=== PATIENT | female | born 1950 | race Caucasian/White ===

== ENCOUNTER → 2017-10-25 | Outpatient (CLI) | payer BC ==
--- NOTE | 2017-10-25 16:26 | RADIOLOGY IMAGING REPORT ---
FACILITY: [facility] PATIENT NAME: Yumiko Ramirez : 1950 MR: [id number] V: [id number] EXAM DATE: ORDERING PHYSICIAN: GIA BURLESON TECHNOLOGIST: Location: [facility] Patient: Yumiko Ramirez : 1950 Visit/Account:[id number] Date of Sevice: 10/25/2017 KNEE 3 VIEW RIGHT History: Right knee pain. Comparison study: None. Findings: There is severe osteopenia. There is no fracture. There is a joint effusion. There are calcified loose bodies in the joint space. There are findings of very prominent joint space narrowing throughout the right knee but they are mos t prominent in the lateral joint space compartment where there is also subchondral sclerosis and a re sultant valgus deformity. Correlation with physical exam and past medical history recommended. IMPRESSION: 1. Severe osteopenia without findings of a fracture. 2. Prominent findings of joint space narrowing throughout the right knee most prominent in the later al joint space compartment. The findings could be related to osteoarthrosis but correlation with cli nical exam is recommended. 3. Moderate-sized joint effusion with calcified loose bodies throughout the joint space. Report Dictated By: Abdirahman Billy MD at 10/25/2017 4:21 PM Report E-Signed By: Abdirahman Billy MD at 10/25/2017 4:22 PM WSN:[email or web address]
== END ==
LOC: RAD 14:10
PROVIDERS: ATTEND Chiropractor
DX: M85.88 Other specified disorders of bone density and structure, other site (principal); M25.461 Effusion, right knee

== ENCOUNTER → 2018-05-22 | Outpatient (CLI) | payer BC ==
--- NOTE | 2018-05-22 12:05 | RADIOLOGY IMAGING REPORT ---
FACILITY: [facility] PATIENT NAME: Yumiko Ramirez : 1950 MR: [id number] V: [id number] EXAM DATE: ORDERING PHYSICIAN: KARTIK NIÑO TECHNOLOGIST: Location: [facility] [place] Patient: Yumiko Ramirez : 1950 Visit/Account:[id number] Date of Sevice: 05/22/2018 EXAMINATION: Chest radiographs 2 views HISTORY: Preoperative exam. Chronic osteoarthritis of right knee, knee pain. COMPARISON: None. FINDINGS: PA and lateral views of the chest are submitted. Lines/tubes: None. Lungs/pleura: No focal consolidation or pleural effusion. Heart: Negative. Mediastinum: Negative. Bony structures/body wall: Mild scoliosis of the thoracolumbar spine. IMPRESSION: No radiographic evidence of acute cardiopulmonary disease. Report Dictated By: Regi Fried MD at 05/22/2018 12:01 PM Report E-Signed By: Regi Fried MD at 05/22/2018 12:02 PM WSN:[email or web address]
--- NOTE | 2018-05-22 12:33 | EKG ---
FACILITY: [facility] PATIENT NAME: TERRI DOW : [id number] MR: [id number] V: [id number] EXAM DATE: ORDERING PHYSICIAN: LIZ BECERRA TECHNOLOGIST: Test Reason : pre-op Blood Pressure : / mmHG Vent. Rate : 069 BPM Atrial Rate : 069 BPM P-R Int : 192 ms QRS Dur : 076 ms QT Int : 394 ms P-R-T Axes : 040 005 026 degrees QTc Int : 422 ms Normal sinus rhythm Anteroseptal infarct , age undetermined Abnormal ECG No previous ECGs available Referred By: Confirmed By:. READING PANEL
== END ==
LOC: LAB 10:49
PROVIDERS: ATTEND Nurse Practitioner Family
DX: Z01.818 Encounter for other preprocedural examination (principal); M41.85 Other forms of scoliosis, thoracolumbar region; M25.561 Pain in right knee; M19.90 Unspecified osteoarthritis, unspecified site
CPT/HCPCS: 36415; 71046; 83036; 85027; 93005

== ENCOUNTER → 2018-05-29 | Outpatient (CLI) | payer BC ==
[2018-05-29 13:31] LABS: INR 0.93
== END ==
LOC: LAB 12:29
PROVIDERS: ATTEND Nurse Practitioner Family
DX: Z01.818 Encounter for other preprocedural examination (principal)
CPT/HCPCS: 36415; 85610

== ENCOUNTER → 2018-06-06 | Outpatient (CLI) | payer BC ==
--- NOTE | 2018-06-06 15:25 | RADIOLOGY IMAGING REPORT ---
FACILITY: [facility] [place] PATIENT NAME: TERRI DOW : [id number] MR: [id number] V: [id number] EXAM DATE: ORDERING PHYSICIAN: KARTIK NIÑO TECHNOLOGIST: Michelle Rojo PROCEDURE:BILATERAL DIGITAL SCREENING MAMMOGRAM WITH CAD ASSISTED INTERPRETATION & 3D TOMOSYNTHESIS COMPARISON:None. The patient's previous mammograms are no longer available by history. INDICATIONS:SCREENING FINDINGS: A small amount of fibroglandular tissue is seen throughout the breasts. There is no evidence of malignant appearing mass, malignant appearing calcification or other secondary sign of malignancy in either breast. DIAGNOSTIC CATEGORY 1--NEGATIVE. RECOMMENDATIONS: ROUTINE MAMMOGRAM AND CLINICAL EVALUATION. IMPRESSION: BIRADS 1: Negative. No significant abnormality is seen. Dictated by: Cortney Tang M.D. on 06/06/2018 at 13:32 Transcribed by: ALEJANDRA on 06/06/2018 at 13:41 Approved by: Cortney Tang M.D. on 06/06/2018 at 15:25 [facility]
== END ==
LOC: MAMO 03:59
PROVIDERS: ATTEND Nurse Practitioner Family
DX: Z12.31 Encounter for screening mammogram for malignant neoplasm of breast (principal); Z85.3 Personal history of malignant neoplasm of breast
CPT/HCPCS: 77063; 77067

== ENCOUNTER → 2018-07-04 | Outpatient (CLI) | payer BC | LOC: US 04:29 | PROVIDERS: ATTEND Nurse Practitioner Family | DX: Z01.818 Encounter for other preprocedural examination (principal); I07.1 Rheumatic tricuspid insufficiency | CPT/HCPCS: 93306 ==